=== PATIENT | female | born 1995 | race Two or more races ===

== ENCOUNTER 2018-03-08 05:39 | Emergency (ER) | payer OTHER ==
[~2018-03-08] VITALS: Ht 162.6 cm; Wt 54.4 kg
[2018-03-08 06:44] LABS: Basophils # (auto) 0.1 uL; Eosinophils # (auto) 0.1 uL; Hemoglobin 11.6 g/dL (12.2-16.2); Lymphocytes # (auto) 1.4 uL; Lymphocytes % (auto) 22.7 % (10.0-50.0); Mean Corpuscular Hemoglobin 27.9 pg (28.0-32.0); Mean Corpuscular Hgb Conc. 33.2 g/dL (32.0-36.0); Monocytes # (auto) 0.5 uL; Monocytes % (auto) 8.3 % (0.0-12.0); Neutrophils # (auto) 4.1 uL; Nucleated Red Blood Cells % 0.1 %; Platelet Count (auto) 355 10^3/uL (140-450); Red Blood Cells 4.17 10^6/uL (4.0-5.20); Red Cell Distribution Width 15.4 % (11.8-14.3); White Blood Cell 6.1 10^3/uL (4.4-10.8)
[2018-03-08 06:53] LABS: Urine Bacteria NONE SEEN /hpf (None Seen); Urine Blood 1+ /uL (Negative); Urine Mucus FEW (None Seen); Urine Specific Gravity 1.039 (1.001-1.035); Urine WBC 45 /hpf (0 - 5)
[2018-03-08 07:05] LABS: Albumin 4.5 g/dL (3.4-5.0); BUN/Creatinine Ratio 27.4; Calcium 9.1 mg/dL (8.5-10.1); Potassium 3.6 mmol/L (3.5-5.1)
[2018-03-08 07:08] LABS: Amphetamine Screen, Urine POSITIVE (NEGATIVE); Barbiturate Scree,Urine POSITIVE (NEGATIVE); Benzodiazephine Screen, Urine POSITIVE (NEGATIVE); Bilirubin, Total 0.3 mg/dL (0.2-1.0); Cannabinoid Screen, Urine NEGATIVE (NEGATIVE); Cocaine Screen, Urine NEGATIVE (NEGATIVE); Opiate Scree,Urine POSITIVE (NEGATIVE); Phencyclidine Screen, Urine NEGATIVE (NEGATIVE); Total Protein 8.1 g/dL (6.4-8.2)
[2018-03-08 08:29] VITALS: BP 106/58
== END 2018-03-08 09:22 | disposition home or self-care (01) ==
LOC: ER 05:41 → EDBD 05:41 → ER 09:22
DX: K59.00 Constipation, unspecified (principal); N39.0 Urinary tract infection, site not specified; F19.129 Other psychoactive substance abuse with intoxication, unspecified
CPT/HCPCS: 36415; 74176; 80053; 80307; 81001; 84702; 85025